=== PATIENT | female | born 1985 | race African-American/Black ===

== ENCOUNTER 2020-09-03 06:14 | Emergency (ER) | payer MEDICAID ==
[~2020-09-03] VITALS: Ht 152.4 cm; Wt 63.5 kg
[2020-09-03 06:16] VITALS: BP 114/68
[2020-09-03] MEDS ORDERED: IBUPROFEN 800 MG TAB PO ONE (08:00)
== END 2020-09-03 08:26 | disposition home or self-care (01) ==
LOC: ER 06:14
DX: M75.31 Calcific tendinitis of right shoulder (principal)
CPT/HCPCS: 73030